=== PATIENT | male | born 1960 | race Hispanic/Latino ===

== ENCOUNTER 2017-07-21 19:21 | Emergency (ER) | payer MEDICAID, OTHER ==
[~2017-07-21 19:21] MED LIST: FERR325T22 PO; HYDR-4060 PO; PROC10TA13 PO; SIME80TA12 PO; TAMS-1 PO
[2017-07-21 20:52] LABS: APPEARANCE,URINE Cloudy (CLEAR); BILIRUBIN,URINE Negative (NEGATIVE); COLOR,URINE Yellow (YELLOW); GLUCOSE, URINE (UA) Negative (NEGATIVE); KETONES,URINE Negative (NEGATIVE); LEUKOCYTE ESTERASE ,URINE Large (NEGATIVE); NITRATE,URINE Negative (NEGATIVE); OCCULT BLOOD,URINE Moderate (NEGATIVE); PROTEIN,URINE POS 2+ (NEGATIVE); UROBILINOGEN,URINE 0.2 mg/dL (0.2-1.0)
[2017-07-21 21:11] LABS: BACTERIA,URINE Rare /HPF (None Seen); WBC,URINE 26-50 /HPF (0-1); YEAST,URINE BUDDING Moderate /HPF (None Seen)
[2017-07-21 21:12] LABS: SQUAMOUS EPITHELIAL CELL,UR 0-2 /LPF (0-2)
[2017-07-21] MEDS ORDERED: ONDANSETRON HCL 4 MG/2 ML VIAL ONE (21:39)
[2017-07-21] MEDS ORDERED: MORPHINE SULFATE 4 MG/1ML SYG ONE (21:39)
[2017-07-21 21:57] LABS: BASOPHILS % (AUTO) 0.4 % (0.0-5.0); EOSINOPHILS % (AUTO) 4.1 % (0.0-8.0); HEMATOCRIT 30.9 % (42-54); LYMPHOCYTES % (AUTO) 8.4 % (21.0-51.0); MEAN CORPUSCULAR HEMOGLOBIN 33.2 pg (27.0-33.0); MEAN CORPUSCULAR VOLUME 94.8 fL (79-99); MONOCYTES % (AUTO) 8.2 % (3.0-13.0); NEUTROPHILS % (AUTO) 78.9 % (40.0-77.0); PLATELET COUNT (AUTO) 216 K/uL (130-400); RED BLOOD CELL COUNT(AUTO) 3.26 MIL/uL (4.50-6.20); RED CELL DISTRIBUTION WIDTH 16.7 % (11.0-15.5); WHITE BLOOD COUNT (AUTO) 11.5 K/uL (4.8-10.8)
[2017-07-21 22:08] LABS: CREATININE 1.8 mg/dL (0.5-1.5); POTASSIUM 4.2 mmol/L (3.5-5.1)
[2017-07-21 22:22] LABS: ALBUMIN 3.1 g/dL (3.5-5.0); BILIRUBIN,TOTAL 0.6 mg/dL (0.2-1.0); TOTAL PROTEIN, SERUM 7.2 g/dL (6.0-8.3)
[2017-07-22] MEDS ORDERED: MORPHINE SULFATE 4 MG/1ML SYG ONE (01:03)
== END 2017-07-22 02:08 | disposition home or self-care (01) ==
LOC: EDH 19:21
DX: C67.9 Malignant neoplasm of bladder, unspecified (principal); N39.0 Urinary tract infection, site not specified; N18.6 End stage renal disease; Z93.6 Other artificial openings of urinary tract status
CPT/HCPCS: 36415; 80053; 81001; 85025; 87088 ×2; 87186 ×2; 96365; 96375; 96376; 99284; J2270 ×2; J2405

== ENCOUNTER 2017-07-27 11:50 | Emergency (ER) | payer OTHER ==
[2017-07-27] MEDS ORDERED: MORPHINE SULFATE 4 MG/1ML SYG ONE ×2 (12:37→13:29)
[2017-07-27] MEDS ORDERED: ONDANSETRON HCL 4 MG/2 ML VIAL ONE (12:37)
[2017-07-27] MEDS ORDERED: DICYCLOMINE HCL 20 MG TAB ONE (12:37)
[2017-07-27 12:38] LABS: BASOPHILS % (AUTO) 0.1 % (0.0-5.0); EOSINOPHILS % (AUTO) 2.2 % (0.0-8.0); HEMATOCRIT 32.7 % (42-54); LYMPHOCYTES % (AUTO) 2.2 % (21.0-51.0); MEAN CORPUSCULAR HEMOGLOBIN 31.8 pg (27.0-33.0); MEAN CORPUSCULAR HGB CONC 33.7 g/dL (32.0-36.0); MEAN CORPUSCULAR VOLUME 94.3 fL (79-99); MONOCYTES % (AUTO) 5.1 % (3.0-13.0); NEUTROPHILS % (AUTO) 90.4 % (40.0-77.0); PLATELET COUNT (AUTO) 230 K/uL (130-400); RED BLOOD CELL COUNT(AUTO) 3.46 MIL/uL (4.50-6.20); RED CELL DISTRIBUTION WIDTH 15.8 % (11.0-15.5); WHITE BLOOD COUNT (AUTO) 14.3 K/uL (4.8-10.8)
[2017-07-27] MEDS ORDERED: LACTATED RINGERS 1000ML 1,000 ML IV ONE (12:38)
[2017-07-27 12:49] LABS: MAGNESIUM 1.6 mg/dL (1.80-2.40)
[2017-07-27 12:53] LABS: CREATININE 1.4 mg/dL (0.5-1.5); POTASSIUM 4.1 mmol/L (3.5-5.1)
[2017-07-27 13:06] LABS: INR 0.95 (0.85-1.15); PARTIAL THROMBOPLASTIN TIME 28.7 SEC (26.3-35.5)
[2017-07-27 13:13] LABS: BILIRUBIN,TOTAL 0.5 mg/dL (0.2-1.0); CREATINE KINASE MB 0.9 ng/mL (0.5-3.6); TOTAL PROTEIN, SERUM 6.9 g/dL (6.0-8.3)
[2017-07-27] MEDS ORDERED: CEFTRIAXONE SODIUM 1 GM ONE (13:29)
[2017-07-27 13:38] LABS: APPEARANCE,URINE Clear (CLEAR); BILIRUBIN,URINE Negative (NEGATIVE); COLOR,URINE Yellow (YELLOW); GLUCOSE, URINE (UA) Negative (NEGATIVE); KETONES,URINE Negative (NEGATIVE); LEUKOCYTE ESTERASE ,URINE Large (NEGATIVE); NITRATE,URINE Negative (NEGATIVE); OCCULT BLOOD,URINE Small (NEGATIVE); PH,URINE >=9.0 (5.0-8.0); PROTEIN,URINE Negative (NEGATIVE); UROBILINOGEN,URINE 0.2 mg/dL (0.2-1.0)
[2017-07-27 13:53] LABS: BACTERIA,URINE Rare /HPF (None Seen); SQUAMOUS EPITHELIAL CELL,UR Rare /LPF (0-2); WBC,URINE 0-1 /HPF (0-1)
[2017-07-27] MEDS ORDERED: KETOROLAC TROMETHAMINE 15MG/ML ONE (14:59)
[2017-07-27] MEDS ORDERED: HYDROCODONE/ACETAMINOPHEN 7.5/325 MG TAB ONE (15:00)
== END 2017-07-27 16:58 | disposition home or self-care (01) ==
LOC: EDH 11:50
DX: N39.0 Urinary tract infection, site not specified (principal); R11.2 Nausea with vomiting, unspecified; R19.7 Diarrhea, unspecified; Z93.6 Other artificial openings of urinary tract status; Z85.51 Personal history of malignant neoplasm of bladder; Z87.891 Personal history of nicotine dependence
CPT/HCPCS: 36415; 74176; 80053; 81001; 82550; 82553; 83605; 83690; 83735; 84484; 85025; 85610; 85730; 86141; 87040 ×2; 87088; 87186; 93005; 96361; 96374; 96375; 96376; 99285; J0696; J1885; J2270 ×2; J2405; J7120

== ENCOUNTER → 2017-08-08 | Outpatient (CLI) | payer OTHER ==
[~2017-08-08] MED LIST changes: +FAMO20TA8 PO; +IRON1CAP28 PO; +LEVO500T2 PO; +SIME180C35 PO
== END | disposition home or self-care (01) ==
LOC: RAH 08:56
PROVIDERS: ATTEND Internal Medicine Hematology & Oncology
DX: C67.9 Malignant neoplasm of bladder, unspecified (principal); Z96.0 Presence of urogenital implants
CPT/HCPCS: 76700

== ENCOUNTER 2017-08-12 01:23 | Inpatient (IN) | payer OTHER ==
[~2017-08-12] VITALS: Ht 175.3 cm; Wt 51.7 kg
[2017-08-12 01:00] VITALS: BP 128/76
[~2017-08-12 01:23] MED LIST changes: -FAMO20TA8 PO; -IRON1CAP28 PO; -LEVO500T2 PO; -SIME180C35 PO
[2017-08-12 02:01] LABS: BASOPHILS % (AUTO) 0.2 % (0.0-5.0); EOSINOPHILS % (AUTO) 19.9 % (0.0-8.0); HEMATOCRIT 34.4 % (42-54); LYMPHOCYTES % (AUTO) 7.3 % (21.0-51.0); MEAN CORPUSCULAR HEMOGLOBIN 32.5 pg (27.0-33.0); MEAN CORPUSCULAR VOLUME 95.4 fL (79-99); MONOCYTES % (AUTO) 5.7 % (3.0-13.0); NEUTROPHILS % (AUTO) 66.9 % (40.0-77.0); PLATELET COUNT (AUTO) 257 K/uL (130-400); RED CELL DISTRIBUTION WIDTH 14.5 % (11.0-15.5); WHITE BLOOD COUNT (AUTO) 10.5 K/uL (4.8-10.8)
[2017-08-12] MEDS ORDERED: ONDANSETRON HCL MDV 20ML 2 MG/ML VIAL ONE (02:01)
[2017-08-12] MEDS ORDERED: HYDROMORPHONE HCL 0.5 MG/0.5 ML ML ONE ×7 (02:02→18:16)
[2017-08-12] MEDS ORDERED: MAG HYDROX/AL HYDROX/SIMETH ES 30 ML SUSP UDCUP ONE (02:11)
[2017-08-12] MEDS ORDERED: LIDOCAINE HCL 2% VISCOUS 15 ML UDCUP ONE (02:11)
[2017-08-12 02:12] LABS: CREATININE 1.3 mg/dL (0.5-1.5); POTASSIUM 4.1 mmol/L (3.5-5.1)
[2017-08-12 02:16] LABS: BILIRUBIN,TOTAL 0.6 mg/dL (0.2-1.0); TOTAL PROTEIN, SERUM 7.6 g/dL (6.0-8.3)
[2017-08-12] MEDS ORDERED: FAMOTIDINE/PF 20 MG/2 ML VIAL IV ONE (03:40)
[2017-08-12] MEDS ORDERED: IOPAMIDOL-370 75 ML VIAL IV ONE (04:54)
[2017-08-12] MEDS ORDERED: DICYCLOMINE HCL 10 MG/ML 2ML AMP IM ONE (06:00)
[2017-08-12] MEDS ORDERED: MORPHINE SULFATE 4 MG/1ML SYG ONE (06:09)
[2017-08-12] MEDS ORDERED: SODIUM CHLORIDE 0.9% 1000ML 1,000 ML IV ONE (06:09)
[2017-08-12] MEDS ORDERED: MORPHINE SULFATE 2 MG/ML 1ML SYG ONE (06:10)
[2017-08-12] MEDS ORDERED: ONDANSETRON HCL MDV 20ML 2 MG/ML VIAL IVP PRN (13:15)
[2017-08-12] MEDS: SODIUM CHLORIDE 0.9% 1000ML 1,000 ML IV SCH ×2 (13:15→23:35)
[2017-08-12] MEDS ORDERED: SIME180C35 PO (13:19)
[2017-08-12] MEDS ORDERED: FAMO20TA8 PO (13:19)
[2017-08-12] MEDS ORDERED: LEVO500T2 PO (13:19)
[2017-08-12] MEDS ORDERED: IRON1CAP28 PO (13:19)
[2017-08-12] MEDS ORDERED: HYDROMORPHONE HCL 2 MG/ML VIAL IVP PRN (15:00)
[2017-08-12 16:30] VITALS: BP 113/77
[2017-08-12] MEDS ORDERED: HYDROMORPHONE 1 MG/1 ML AMP IVP PRN (18:25)
[2017-08-12 20:00] VITALS: BP 134/71
[2017-08-12] MEDS ORDERED: DIPHENHYDRAMINE HCL 25 MG CAPSULE PO PRN (20:45)
[2017-08-12] MEDS ORDERED: NALOXONE HCL 0.4 MG/1 ML ML IVP PRN (20:45)
[2017-08-12] MEDS ORDERED: DiphenhydrAMINE HCL 50 MG/ML VIAL IV PRN (20:45)
[2017-08-12] MEDS ORDERED: LACTULOSE 20 GM/30 ML UDCUP PO PRN (20:45)
[2017-08-12] MEDS ORDERED: SODIUM CHLORIDE 0.9% 1000ML 1,000 ML IV SCH (20:45)
[2017-08-12] MEDS: HYDROMORPHONE PCA 10 MG/50 ML 50 ML IV PRN (21:23)
[2017-08-12] MEDS ORDERED: MORPHINE SULFATE 15 MG TABLET.SA PO ONE (23:26)
[2017-08-12] MEDS: MORPHINE SULFATE 15 MG TABLET.SA PO SCH (23:30)
[2017-08-13] VITALS: BP 146/84
[2017-08-13 04:00] VITALS: BP 141/79
[2017-08-13 08:00] VITALS: BP 122/77
[2017-08-13] MEDS: PANTOPRAZOLE SODIUM 40 MG TABLET.DR PO SCH (10:07)
[2017-08-13] MEDS: MORPHINE SULFATE 15 MG TABLET.SA PO SCH ×2 (10:10→22:12)
[2017-08-13] MEDS: SODIUM CHLORIDE 0.9% 1000ML 1,000 ML IV SCH ×2 (10:14→20:05)
[2017-08-13] MEDS ORDERED: HYDRALAZINE HCL 20 MG/ML VIAL IV PRN (11:00)
[2017-08-13] MEDS ORDERED: ACETAMINOPHEN 325 MG TAB PO PRN ×2 (11:00)
[2017-08-13] MEDS ORDERED: GUAIFENESIN-DM 200/20 MG 10 ML PO PRN (11:00)
[2017-08-13] MEDS ORDERED: ONDANSETRON HCL 4 MG/2 ML VIAL IV PRN (11:00)
[2017-08-13] MEDS ORDERED: NITROGLYCERIN 0.4 MG SL TAB SL PRN (11:00)
[2017-08-13] MEDS ORDERED: LACTULOSE 20 GM/30 ML UDCUP PO PRN (11:00)
[2017-08-13 12:00] VITALS: BP 92/56
[2017-08-13] MEDS: MAG HYDROX/AL HYDROX/SIMETH ES 30 ML SUSP UDCUP PO PRN (13:40)
[2017-08-13] MEDS ORDERED: FAMOTIDINE/PF 20 MG/2 ML VIAL IV ONE (14:38)
[2017-08-13] MEDS: FAMOTIDINE/PF 20 MG/2 ML VIAL IV SCH ×2 (14:39→22:12)
[2017-08-13] MEDS ORDERED: DICYCLOMINE HCL 20 MG TAB PO ONE (15:28)
[2017-08-13] MEDS: DICYCLOMINE HCL 20 MG TAB PO PRN ×2 (15:33→22:07)
[2017-08-13 16:00] VITALS: BP 132/84
[2017-08-13 20:00] VITALS: BP 127/74
[2017-08-14] VITALS: BP 126/75
[2017-08-14] MEDS: SODIUM CHLORIDE 0.9% 1000ML 1,000 ML IV SCH (03:50)
[2017-08-14 04:00] VITALS: BP 128/77
[2017-08-14 05:36] LABS: HEMATOCRIT 30.1 % (42-54); MEAN CORPUSCULAR HEMOGLOBIN 33.6 pg (27.0-33.0); MEAN CORPUSCULAR HGB CONC 35.2 g/dL (32.0-36.0); MEAN CORPUSCULAR VOLUME 95.5 fL (79-99); PLATELET COUNT (AUTO) 198 K/uL (130-400); RED BLOOD CELL COUNT(AUTO) 3.15 MIL/uL (4.50-6.20); RED CELL DISTRIBUTION WIDTH 14.5 % (11.0-15.5)
[2017-08-14 05:46] LABS: CREATININE 1.1 mg/dL (0.5-1.5)
[2017-08-14] MEDS ORDERED: HYDROMORPHONE 1 MG/1 ML AMP IVP PRN (07:08)
[2017-08-14 08:00] VITALS: BP 114/65
[2017-08-14] MEDS: ENOXAPARIN SODIUM 30 MG/0.3 ML SQ SCH (09:00)
[2017-08-14] MEDS: FAMOTIDINE/PF 20 MG/2 ML VIAL IV SCH (09:00)
[2017-08-14] MEDS: PANTOPRAZOLE SODIUM 40 MG TABLET.DR PO SCH (09:01)
[2017-08-14] MEDS: MORPHINE SULFATE 15 MG TABLET.SA PO SCH (11:38)
[2017-08-14 12:00] VITALS: BP 126/72
[2017-08-14] MEDS: HYDROMORPHONE PCA 10 MG/50 ML 50 ML IV PRN (12:56)
[2017-08-14] MEDS: SIMETHICONE 80 MG TAB.CHEW PO SCH ×4 (13:00→21:00)
[2017-08-14 16:00] VITALS: BP 135/83
[2017-08-14 19:00] VITALS: BP 132/72
[2017-08-15] VITALS: BP 136/88
[2017-08-15] MEDS: MORPHINE SULFATE 15 MG TABLET.SA PO SCH ×2 (00:09→11:30)
[2017-08-15 04:00] VITALS: BP 151/92
[2017-08-15] MEDS: MAG HYDROX/AL HYDROX/SIMETH ES 30 ML SUSP UDCUP PO PRN (05:13)
[2017-08-15 05:48] LABS: HEMATOCRIT 29.8 % (42-54); MEAN CORPUSCULAR HGB CONC 34.7 g/dL (32.0-36.0); PLATELET COUNT (AUTO) 229 K/uL (130-400); RED BLOOD CELL COUNT(AUTO) 3.14 MIL/uL (4.50-6.20); RED CELL DISTRIBUTION WIDTH 14.5 % (11.0-15.5); WHITE BLOOD COUNT (AUTO) 8.1 K/uL (4.8-10.8)
[2017-08-15 05:58] LABS: POTASSIUM 3.8 mmol/L (3.5-5.1)
[2017-08-15] MEDS: HYDROMORPHONE PCA 10 MG/50 ML 50 ML IV PRN (06:02)
[2017-08-15 08:28] VITALS: BP 147/83
[2017-08-15] MEDS: PANTOPRAZOLE SODIUM 40 MG TABLET.DR PO SCH (09:20)
[2017-08-15] MEDS: SIMETHICONE 80 MG TAB.CHEW PO SCH ×2 (09:20→13:00)
[2017-08-15] MEDS: ENOXAPARIN SODIUM 30 MG/0.3 ML SQ SCH (09:27)
[2017-08-15 12:00] VITALS: BP 136/78
[2017-08-15] MEDS ORDERED: OPIUM/BELLADONNA ALKALOIDS 1 EACH SUPP.RECT RC PRN (12:00)
[2017-08-15] MEDS ORDERED: FAMOTIDINE 20MG TAB 20 MG TAB PO SCH (13:30)
[2017-08-15] MEDS ORDERED: HYDROCODONE/ACETAMINOPHEN 5/325 MG TAB PO PRN (13:30)
[2017-08-15] MEDS ORDERED: SIMETHICONE 180 MG PO SCH (16:00)
[2017-08-15] MEDS ORDERED: TAMSULOSIN HCL 0.4 MG CAP.ER.24H PO SCH (21:00)
[2017-08-16] MEDS ORDERED: IRON FUM PO SCH (09:00)
[2017-08-16] MEDS ORDERED: C NO 9 PO SCH (09:00)
[2017-08-16] MEDS ORDERED: [UNRECOGNIZED DRUG - OTHER] PO SCH (09:00)
[2017-08-16] MEDS ORDERED: FERROUS SULFATE 325 MG TABLET.DR PO SCH (09:00)
[2017-08-16] MEDS ORDERED: PROCHLORPERAZINE MALEATE 10 MG PO PRN (09:00)
[2017-08-16] MEDS ORDERED: VIT B PO SCH (09:00)
== END 2017-08-15 14:10 | disposition home or self-care (01) | DRG 861 ==
LOC: EDH 01:23 → EDHIP 06:04 → 4CH 12:29 → 4BH 17:39
PROVIDERS: ADMIT Internal Medicine Hematology & Oncology; ATTEND Internal Medicine Hematology & Oncology
DX: G89.3 Neoplasm related pain (acute) (chronic) (principal); C78.7 Secondary malignant neoplasm of liver and intrahepatic bile duct; N18.4 Chronic kidney disease, stage 4 (severe); E44.0 Moderate protein-calorie malnutrition; C67.9 Malignant neoplasm of bladder, unspecified; Z93.6 Other artificial openings of urinary tract status; D64.9 Anemia, unspecified; G89.4 Chronic pain syndrome; N13.9 Obstructive and reflux uropathy, unspecified; N20.0 Calculus of kidney; R74.8 Abnormal levels of other serum enzymes; Z92.3 Personal history of irradiation; Z87.891 Personal history of nicotine dependence; Z68.1 Body mass index [BMI] 19.9 or less, adult; Z51.11 Encounter for antineoplastic chemotherapy
CPT/HCPCS: 36415; 74021; 74177; 80048; 80053; 82150; 82550; 83690; 84484; 85025; 85027; 93005; J0500; J1170; J1650; J2270; J3490; J7030; Q9967

== ENCOUNTER 2017-08-20 13:27 | Emergency (ER) | payer OTHER ==
[~2017-08-20 13:27] MED LIST changes: +FAMO20TA8 PO; +IRON1CAP28 PO; +LEVO500T2 PO; +SIME180C35 PO; -SIME80TA12 PO
[2017-08-20 14:48] LABS: BASOPHILS % (AUTO) 0.6 % (0.0-5.0); EOSINOPHILS % (AUTO) 2.5 % (0.0-8.0); LYMPHOCYTES % (AUTO) 7.9 % (21.0-51.0); MEAN CORPUSCULAR HEMOGLOBIN 32.4 pg (27.0-33.0); MEAN CORPUSCULAR HGB CONC 34.1 g/dL (32.0-36.0); MEAN CORPUSCULAR VOLUME 94.9 fL (79-99); PLATELET COUNT (AUTO) 270 K/uL (130-400); RED CELL DISTRIBUTION WIDTH 14.1 % (11.0-15.5); WHITE BLOOD COUNT (AUTO) 5.5 K/uL (4.8-10.8)
[2017-08-20] MEDS ORDERED: MORPHINE SULFATE 4 MG/1ML SYG ONE (14:51)
[2017-08-20 14:54] LABS: CREATININE 1.3 mg/dL (0.5-1.5); POTASSIUM 3.6 mmol/L (3.5-5.1)
[2017-08-20 15:10] LABS: BILIRUBIN,DIRECT 0.3 mg/dL (0.0-0.3); BILIRUBIN,TOTAL 0.8 mg/dL (0.2-1.0); TOTAL PROTEIN, SERUM 7.9 g/dL (6.0-8.3)
[2017-08-20] MEDS ORDERED: HYDROMORPHONE 1 MG/1 ML AMP ONE ×2 (16:07→17:19)
[2017-08-20] MEDS ORDERED: FENTANYL 50 MCG/HR PATCH TD ONE (17:46)
[2017-08-21] MEDS ORDERED: CEFTRIAXONE SODIUM 1 GM ONE (06:18)
== END 2017-08-20 18:57 | disposition home or self-care (01) ==
LOC: EDH 13:27
DX: C67.9 Malignant neoplasm of bladder, unspecified (principal); C78.7 Secondary malignant neoplasm of liver and intrahepatic bile duct; R10.9 Unspecified abdominal pain; N18.9 Chronic kidney disease, unspecified; Z87.891 Personal history of nicotine dependence
CPT/HCPCS: 36415; 76770; 80048; 80076; 83690; 84484; 85025; 96374; 96375; 96376; 99285; J1170 ×2; J2270; J0696

== ENCOUNTER 2017-09-13 13:00 | Inpatient (IN) | payer OTHER ==
[~2017-09-13] VITALS: Ht 172.7 cm; Wt 55.5 kg
[2017-09-13] MEDS ORDERED: SODIUM CHLORIDE 0.9% 1000ML 1,000 ML IV ONE (13:10)
[2017-09-13] MEDS ORDERED: MORPHINE SULFATE 4 MG/1ML SYG ONE (13:42)
[2017-09-13] MEDS ORDERED: ONDANSETRON HCL MDV 20ML 2 MG/ML VIAL ONE (13:42)
[2017-09-13 13:59] LABS: HEMATOCRIT 30.9 % (42-54); MEAN CORPUSCULAR HEMOGLOBIN 32.1 pg (27.0-33.0); MEAN CORPUSCULAR HGB CONC 34.1 g/dL (32.0-36.0); MEAN CORPUSCULAR VOLUME 94.1 fL (79-99); PLATELET COUNT (AUTO) 208 K/uL (130-400); RED BLOOD CELL COUNT(AUTO) 3.28 MIL/uL (4.50-6.20); RED CELL DISTRIBUTION WIDTH 14.6 % (11.0-15.5); WHITE BLOOD COUNT (AUTO) 21.1 K/uL (4.8-10.8)
[2017-09-13 14:08] LABS: APPEARANCE,URINE TURBID (CLEAR); BILIRUBIN,URINE SMALL (NEGATIVE); COLOR,URINE YELLOW (YELLOW); GLUCOSE, URINE (UA) NEGATIVE (NEGATIVE); KETONES,URINE NEGATIVE (NEGATIVE); LEUKOCYTE ESTERASE ,URINE LARGE (NEGATIVE); NITRATE,URINE NEGATIVE (NEGATIVE); OCCULT BLOOD,URINE LARGE (NEGATIVE); PH,URINE 5.5 (5.0-8.0); PROTEIN,URINE 100 (NEGATIVE); UROBILINOGEN,URINE 0.2 mg/dL (0.2-1.0)
[2017-09-13 14:09] LABS: CREATININE 1.7 mg/dL (0.5-1.5); POTASSIUM 4.8 mmol/L (3.5-5.1)
[2017-09-13 14:11] LABS: INR 1.18 (0.85-1.15); PARTIAL THROMBOPLASTIN TIME 39.1 SEC (26.3-35.5); PROTHROMBIN TIME 12.4 SEC (9.6-11.6)
[2017-09-13 14:11] LABS: BACTERIA,URINE Moderate /HPF (None Seen); SQUAMOUS EPITHELIAL CELL,UR Rare /HPF (0-2); YEAST,URINE BUDDING Few /HPF (None Seen)
[2017-09-13 14:22] LABS: ALBUMIN 1.7 g/dL (3.5-5.0); BILIRUBIN,TOTAL 5.6 mg/dL (0.2-1.0)
[2017-09-13] MEDS ORDERED: HYDROMORPHONE 1 MG/1 ML AMP ONE ×2 (14:26→15:11)
[2017-09-13] MEDS ORDERED: SODIUM CHLORIDE 0.9% 1000ML 2,000 ML IV ONE (14:26)
[2017-09-13] MEDS ORDERED: CEFTRIAXONE SODIUM 1 GM ONE (14:35)
[2017-09-13] MEDS: SODIUM CHLORIDE 0.9% 1000ML 1,000 ML IV SCH (15:06)
[2017-09-13] MEDS ORDERED: ACETAMINOPHEN 325 MG TAB PO PRN ×2 (15:15)
[2017-09-13] MEDS ORDERED: ONDANSETRON HCL MDV 20ML 2 MG/ML VIAL IV PRN (15:15)
[2017-09-13] MEDS ORDERED: NITROGLYCERIN 0.4 MG SL TAB SL PRN (15:15)
[2017-09-13] MEDS ORDERED: LACTULOSE 20 GM/30 ML UDCUP PO PRN (15:15)
[2017-09-13] MEDS ORDERED: HYDROMORPHONE 1 MG/1 ML AMP IV PRN (15:15)
[2017-09-13] MEDS ORDERED: GUAIFENESIN-DM 200/20 MG 10 ML PO PRN (15:15)
[2017-09-13 16:05] VITALS: BP 111/68
[2017-09-13] MEDS: NYSTATIN 100000 UNIT/ML 5ML UDCUP PO SCH ×2 (17:02→21:25)
[2017-09-13] MEDS: SIMETHICONE 80 MG TAB.CHEW PO SCH ×2 (17:16→21:25)
[2017-09-13] MEDS: MAG HYDROX/AL HYDROX/SIMETH ES 30 ML SUSP UDCUP PO PRN (17:16)
[2017-09-13] MEDS: FLUCONAZOLE 200 MG/NS 100 ML 100 ML IV SCH (17:17)
[2017-09-13] MEDS ORDERED: HYDROMORPHONE PCA 10 MG/50 ML 50 ML IV ONE (18:42)
[2017-09-13 19:42] VITALS: BP 109/64
[2017-09-13] MEDS: FAMOTIDINE 20MG TAB 20 MG TAB PO SCH (21:25)
[2017-09-13] MEDS: HYDROMORPHONE PCA 10 MG/50 ML 50 ML IV PRN (21:33)
[2017-09-13] MEDS: SODIUM CHLORIDE 0.9% 500ML 500 ML IV SCH (22:14)
[2017-09-13 23:45] VITALS: BP 133/66
[2017-09-14] VITALS (11 sets, daily range): BP systolic 115–136; BP diastolic 58–87
[2017-09-14 04:45] LABS: MEAN CORPUSCULAR HEMOGLOBIN 33.9 pg (27.0-33.0); MEAN CORPUSCULAR VOLUME 94.1 fL (79-99); PLATELET COUNT (AUTO) 205 K/uL (130-400); RED BLOOD CELL COUNT(AUTO) 3.19 MIL/uL (4.50-6.20); RED CELL DISTRIBUTION WIDTH 14.4 % (11.0-15.5); WHITE BLOOD COUNT (AUTO) 21.4 K/uL (4.8-10.8)
[2017-09-14 05:12] LABS: CREATININE 1.5 mg/dL (0.5-1.5)
[2017-09-14] MEDS: SODIUM CHLORIDE 0.9% 1000ML 1,000 ML IV SCH (07:00)
[2017-09-14] MEDS: SIMETHICONE 80 MG TAB.CHEW PO SCH ×4 (09:55→20:39)
[2017-09-14] MEDS: FAMOTIDINE 20MG TAB 20 MG TAB PO SCH ×2 (09:55→20:39)
[2017-09-14] MEDS: NYSTATIN 100000 UNIT/ML 5ML UDCUP PO SCH ×4 (09:55→20:39)
[2017-09-14] MEDS ORDERED: LEVOFLOXACIN 500 MG/D5W 100 ML 100 ML IV SCH (10:05)
[2017-09-14] MEDS ORDERED: CEFTRIAXONE SODIUM 1 GM IVP SCH (10:15)
[2017-09-14] MEDS: FLUCONAZOLE 200 MG/NS 100 ML 100 ML IV SCH (10:27)
[2017-09-14] MEDS ORDERED: MORPHINE SULFATE 4 MG/1ML SYG IVP PRN (10:30)
[2017-09-14] MEDS ORDERED: ISOVUE-300 100 ML VIAL IV ONE (11:10)
[2017-09-14] MEDS ORDERED: SODIUM BICARB 50MEQ 50ML VIAL ONE (11:10)
[2017-09-14] MEDS ORDERED: LIDOCAINE HCL 2% 20ML ONE (11:11)
[2017-09-14] MEDS ORDERED: MIDAZOLAM HCL 1 MG/ML 2ML VIAL ONE (11:35)
[2017-09-14] MEDS ORDERED: CEFTRIAXONE 1GM/D5W 50ML 50 ML IV SCH (14:00)
[2017-09-14] MEDS: CEFTRIAXONE SODIUM 1 GM IVP SCH (16:29)
[2017-09-14] MEDS: HYDROMORPHONE PCA 10 MG/50 ML 50 ML IV PRN (16:29)
[2017-09-14] MEDS: SODIUM CHLORIDE 0.9% 500ML 500 ML IV SCH (16:52)
[2017-09-15] MEDS: MAG HYDROX/AL HYDROX/SIMETH ES 30 ML SUSP UDCUP PO PRN (03:07)
[2017-09-15 03:55] VITALS: BP 118/72
[2017-09-15 05:51] LABS: HEMATOCRIT 32.6 % (42-54); MEAN CORPUSCULAR HEMOGLOBIN 32.8 pg (27.0-33.0); MEAN CORPUSCULAR VOLUME 93.7 fL (79-99); PLATELET COUNT (AUTO) 220 K/uL (130-400); RED BLOOD CELL COUNT(AUTO) 3.48 MIL/uL (4.50-6.20); RED CELL DISTRIBUTION WIDTH 14.7 % (11.0-15.5); WHITE BLOOD COUNT (AUTO) 20.7 K/uL (4.8-10.8)
[2017-09-15 06:00] LABS: CREATININE 1.4 mg/dL (0.5-1.5); POTASSIUM 5.5 mmol/L (3.5-5.1)
[2017-09-15 07:00] VITALS: BP 123/81
[2017-09-15] MEDS ORDERED: LEVOFLOXACIN 500 MG/D5W 100 ML 100 ML IV SCH (09:00)
[2017-09-15] MEDS ORDERED: MAGNESIUM CITRATE 296 ML SOLUTION PO PRN (09:45)
[2017-09-15] MEDS: FAMOTIDINE 20MG TAB 20 MG TAB PO SCH ×2 (10:38→21:58)
[2017-09-15] MEDS: SIMETHICONE 80 MG TAB.CHEW PO SCH ×4 (10:38→21:58)
[2017-09-15] MEDS: NYSTATIN 100000 UNIT/ML 5ML UDCUP PO SCH ×4 (10:38→21:58)
[2017-09-15] MEDS: FLUCONAZOLE 200 MG/NS 100 ML 100 ML IV SCH (10:39)
[2017-09-15] MEDS: LEVOFLOXACIN 250 MG/D5W 50ML 50 ML IVPB SCH (10:39)
[2017-09-15 11:00] VITALS: BP 125/87
[2017-09-15] MEDS: CEFTRIAXONE SODIUM 1 GM IVP SCH (14:18)
[2017-09-15 19:20] VITALS: BP 139/98
[2017-09-15 23:56] VITALS: BP 125/56
[2017-09-16] MEDS: HYDROMORPHONE PCA 10 MG/50 ML 50 ML IV PRN (01:25)
[2017-09-16 04:15] VITALS: BP 155/99
[2017-09-16] MEDS: MAG HYDROX/AL HYDROX/SIMETH ES 30 ML SUSP UDCUP PO PRN (04:31)
[2017-09-16 07:00] VITALS: BP 140/84
[2017-09-16 07:01] LABS: CREATININE 1.9 mg/dL (0.5-1.5)
[2017-09-16 07:07] LABS: POTASSIUM 6.1 mmol/L (3.5-5.1)
[2017-09-16 07:25] LABS: HEMATOCRIT 37.1 % (42-54); MEAN CORPUSCULAR HGB CONC 34.3 g/dL (32.0-36.0); MEAN CORPUSCULAR VOLUME 96.2 fL (79-99); PLATELET COUNT (AUTO) 125 K/uL (130-400); RED BLOOD CELL COUNT(AUTO) 3.86 MIL/uL (4.50-6.20); RED CELL DISTRIBUTION WIDTH 15.5 % (11.0-15.5)
[2017-09-16] MEDS: FLUCONAZOLE 200 MG/NS 100 ML 100 ML IV SCH (07:49)
[2017-09-16] MEDS: LEVOFLOXACIN 250 MG/D5W 50ML 50 ML IVPB SCH (07:49)
[2017-09-16] MEDS: SIMETHICONE 80 MG TAB.CHEW PO SCH ×4 (07:49→20:07)
[2017-09-16] MEDS: NYSTATIN 100000 UNIT/ML 5ML UDCUP PO SCH ×4 (07:49→20:07)
[2017-09-16] MEDS: FAMOTIDINE 20MG TAB 20 MG TAB PO SCH ×2 (07:49→20:07)
[2017-09-16] MEDS ORDERED: ENOXAPARIN SODIUM 30 MG/0.3 ML SQ SCH (09:00)
[2017-09-16] MEDS ORDERED: SODIUM POLYSTYRENE SULFONATE 15 GM/60 ML ML PO SCH ×3 (09:30→21:15)
[2017-09-16] MEDS: SODIUM CHLORIDE 0.9% 1000ML 1,000 ML IV SCH ×2 (10:10→22:06)
[2017-09-16 11:00] VITALS: BP 148/97
[2017-09-16] MEDS: CEFTRIAXONE SODIUM 1 GM IVP SCH (12:31)
[2017-09-16] MEDS ORDERED: CALCIUM GLUCONATE 1 GM/10 ML VIAL IV SCH (15:15)
[2017-09-16] MEDS ORDERED: SODIUM BICARB 8.4% 50ML SYRINGE IVP SCH (15:15)
[2017-09-16 19:20] VITALS: BP 151/78
[2017-09-16] MEDS ORDERED: SODIUM BICARBONATE 650 MG TAB PO SCH (21:00)
[2017-09-16 22:45] VITALS: BP 84/45
[2017-09-16 22:50] VITALS: BP 117/64
[2017-09-16 22:51] LABS: ABG BASE EXCESS -17.3 mmol/L (-2.0-3.0); ABG HCO3 7.6 mmol/L (21.0-28.0); ABG OXYGEN SATURATION 98.8 % (95.0-99.0); ABG PCO2 < 18 mmHg (35-48)
[2017-09-16] MEDS ORDERED: OXYCODONE HCL 5 MG TAB PO PRN (23:30)
[2017-09-17] VITALS (28 sets, daily range): BP systolic 65–158; BP diastolic 30–113
[2017-09-17] MEDS ORDERED: DEXTROSE 50%-WATER 25 GM/50 ML VIAL IV SCH (00:15)
[2017-09-17] MEDS ORDERED: INSULIN HUMULIN R 100 UNIT/ML 3ML SQ SCH (00:15)
[2017-09-17] MEDS ORDERED: CALCIUM GLUCONATE 1 GM/10 ML VIAL IV SCH (00:15)
[2017-09-17] MEDS ORDERED: DEXTROSE 50%-WATER 50 ML DISP.SYRIN IV ONE (00:17)
[2017-09-17] MEDS ORDERED: INSULIN HUMULIN R 100 UNIT/ML 3ML ONE (00:18)
[2017-09-17] MEDS ORDERED: SODIUM BICARB 8.4% 50ML SYRINGE IVP SCH (00:30)
[2017-09-17] MEDS ORDERED: CALCIUM GLUCONATE 1 GM in SODIUM CHLORIDE 0.9% 50 ML IV SCH (00:45)
[2017-09-17] MEDS ORDERED: LORAZEPAM 2 MG/ML 1 ML VIAL IVP ONE (00:45)
[2017-09-17] MEDS ORDERED: LORAZEPAM 2 MG/ML 1 ML VIAL ONE (00:49)
[2017-09-17 01:02] LABS: HEMATOCRIT 29.2 % (42-54); MEAN CORPUSCULAR HEMOGLOBIN 33.3 pg (27.0-33.0); MEAN CORPUSCULAR HGB CONC 33.8 g/dL (32.0-36.0); MEAN CORPUSCULAR VOLUME 98.3 fL (79-99); NUCLEATED RED BLOOD CELLS 0.1 % (0.0-0.19); PLATELET COUNT (AUTO) 86 K/uL (130-400); RED BLOOD CELL COUNT(AUTO) 2.97 MIL/uL (4.50-6.20); RED CELL DISTRIBUTION WIDTH 15.3 % (11.0-15.5); WHITE BLOOD COUNT (AUTO) 29.7 K/uL (4.8-10.8)
[2017-09-17] MEDS ORDERED: SODIUM BICARB 50MEQ 50ML VIAL IV STA (01:08)
[2017-09-17] MEDS ORDERED: SODIUM BICARB 50MEQ 50ML VIAL ONE (01:09)
[2017-09-17 01:11] LABS: CREATINE KINASE MB 4.5 ng/mL (0.5-3.6); CREATININE 2.7 mg/dL (0.5-1.5); TROPONIN I 0.11 ng/mL (0.00-0.06)
[2017-09-17] MEDS ORDERED: DEXTROSE 5%-WATER 1,000 ML IV ONE (01:11)
[2017-09-17] MEDS ORDERED: SODIUM BICARB 8.4% 50ML SYRING 150 MEQ in DEXTROSE 5%-WATER 1,000 ML IV SCH (01:15)
[2017-09-17 01:17] LABS: POTASSIUM 7.4 mmol/L (3.5-5.1)
[2017-09-17] MEDS ORDERED: VANCOMYCIN 1GM+NS 250ML 250 ML IV ONE (01:24)
[2017-09-17] MEDS ORDERED: ZOSYN 3.375GM+NS 50ML 50 ML IV ONE (01:24)
[2017-09-17] MEDS ORDERED: VANCOMYCIN 1GM+NS 250ML 250 ML IV SCH (01:30)
[2017-09-17] MEDS ORDERED: VANCOMYCIN PROTOCOL PER PHARMACY IV SCH (01:30)
[2017-09-17] MEDS: IPRATROPIUM/ALBUTEROL SULFATE 3 ML SOLUTION IH SCH ×2 (01:44→06:52)
[2017-09-17] MEDS ORDERED: SODIUM CHLORIDE 0.9% 1000ML 1,000 ML IV ONE (01:45)
[2017-09-17] MEDS ORDERED: FAMOTIDINE 20MG TAB 20 MG TAB PO SCH (02:30)
[2017-09-17 02:37] LABS: ABG BASE EXCESS -14.2 mmol/L (-2.0-3.0); ABG HCO3 11.4 mmol/L (21.0-28.0); ABG OXYGEN SATURATION 99.5 % (95.0-99.0); ABG PCO2 26 mmHg (35-48)
[2017-09-17] MEDS ORDERED: ZOSYN 3.375GM+NS 50ML 50 ML IV SCH (03:00)
[2017-09-17] MEDS ORDERED: SODIUM CHLORIDE 0.9% 1000ML 1,000 ML IV STA (04:34)
[2017-09-17 04:36] LABS: INR 2.74 (0.85-1.15); PARTIAL THROMBOPLASTIN TIME 73.5 SEC (26.3-35.5); PROTHROMBIN TIME 28.2 SEC (9.6-11.6)
[2017-09-17 04:50] LABS: HEMATOCRIT 24.3 % (42-54); MEAN CORPUSCULAR HEMOGLOBIN 33.3 pg (27.0-33.0); MEAN CORPUSCULAR HGB CONC 33.5 g/dL (32.0-36.0); MEAN CORPUSCULAR VOLUME 99.3 fL (79-99); NUCLEATED RED BLOOD CELLS 0.1 % (0.0-0.19); PLATELET COUNT (AUTO) 77 K/uL (130-400); RED BLOOD CELL COUNT(AUTO) 2.44 MIL/uL (4.50-6.20); RED CELL DISTRIBUTION WIDTH 15.4 % (11.0-15.5); WHITE BLOOD COUNT (AUTO) 29.3 K/uL (4.8-10.8)
[2017-09-17 05:38] LABS: CREATININE 2.9 mg/dL (0.5-1.5)
[2017-09-17 05:40] LABS: POTASSIUM 6.4 mmol/L (3.5-5.1)
[2017-09-17] MEDS ORDERED: SODIUM POLYSTYRENE SULFONATE 15 GM/60 ML ML RC SCH (06:00)
[2017-09-17] MEDS ORDERED: FUROSEMIDE 10 MG/ML 4ML VIAL IV SCH (06:34)
[2017-09-17 07:58] LABS: ABG BASE EXCESS -14.3 mmol/L (-2.0-3.0); ABG HCO3 10.4 mmol/L (21.0-28.0); ABG OXYGEN SATURATION 98.6 % (95.0-99.0); ABG PCO2 22 mmHg (35-48)
[2017-09-17] MEDS ORDERED: NOREPINEPHRINE BITARTRATE 8 MG in DEXTROSE 5%-WATER 250 ML IV SCH (08:00)
[2017-09-17] MEDS ORDERED: FONDAPARINUX SODIUM 2.5 MG/0.5 ML SQ SCH (09:00)
[2017-09-17] MEDS: SIMETHICONE 80 MG TAB.CHEW PO SCH ×2 (09:00→13:00)
[2017-09-17] MEDS ORDERED: SODIUM BICARB 50MEQ 50ML VIAL IV SCH (09:15)
[2017-09-17] MEDS ORDERED: FENTANYL CITRATE PF 50 MCG/1 ML 2ML VIAL IVP PRN (09:45)
[2017-09-17] MEDS ORDERED: LORAZEPAM 2 MG/ML 1 ML VIAL IVP PRN (09:45)
== END 2017-09-17 14:06 | disposition expired | DRG 720 ==
LOC: EDH 13:00 → EDHIP 13:26 → OBSVTOIN 13:26 → 3DH 15:55 → 2CH 09-17 00:51
PROVIDERS: ADMIT Internal Medicine Hematology & Oncology; ATTEND Internal Medicine Hematology & Oncology
PROC: 0T25X0Z Change Drainage Device in Kidney, External Approach (ICD-10-PCS; principal; 2017-09-14)
PROC: 5A09357 Assistance with Respiratory Ventilation, Less than 24 Consecutive Hours, Continuous Positive Airway Pressure (ICD-10-PCS; 2017-09-16)
DX: A41.9 Sepsis, unspecified organism (principal); D65 Disseminated intravascular coagulation [defibrination syndrome]; J96.01 Acute respiratory failure with hypoxia; N17.0 Acute kidney failure with tubular necrosis; E43 Unspecified severe protein-calorie malnutrition; R65.21 Severe sepsis with septic shock; C67.9 Malignant neoplasm of bladder, unspecified; E87.5 Hyperkalemia; B37.9 Candidiasis, unspecified; N13.9 Obstructive and reflux uropathy, unspecified; C34.90 Malignant neoplasm of unspecified part of unspecified bronchus or lung; G89.29 Other chronic pain; M80.88XA Other osteoporosis with current pathological fracture, vertebra(e), initial encounter for fracture; D64.9 Anemia, unspecified; K59.00 Constipation, unspecified; N18.9 Chronic kidney disease, unspecified; N20.0 Calculus of kidney; N39.0 Urinary tract infection, site not specified; Z51.5 Encounter for palliative care; Z66 Do not resuscitate; Z85.51 Personal history of malignant neoplasm of bladder; Z87.440 Personal history of urinary (tract) infections; Z87.891 Personal history of nicotine dependence
CPT/HCPCS: 36415; 36600; 50435; 71045; 74021; 76770; 80048; 80053; 81001; 82330; 82435; 82550; 82553; 82803; 82947; 83010; 83605; 83615; 83874; 83880; 84132; 84295; 84484; 85018; 85025; 85027; 85610; 85730; 86022; 87040; 87088; 87186; 94640; 94660; 94664; 99152; 99153; A4218; C1729; C1769; J0610; J0696; J1170; J1450; J1644; J1650; J1815; J1940; J1956; J2060; J2250; J2270; J2543; J3010; J3370; J3490; J7030; J7060; J7070; Q9967